=== PATIENT | female | born 1970 | race Caucasian/White ===

== ENCOUNTER 2017-04-11 14:55 | Outpatient (CLI) | payer BC | END 2017-04-11 14:56 | disposition home or self-care (01) | LOC: BICMAMMO 14:55 | PROVIDERS: ATTEND Internal Medicine | DX: Z12.31 Encounter for screening mammogram for malignant neoplasm of breast (principal); Z80.3 Family history of malignant neoplasm of breast | CPT/HCPCS: 77063; 77067 ==

== ENCOUNTER 2018-05-05 13:55 | Outpatient (CLI) | payer BC | END 2018-05-05 13:56 | disposition home or self-care (01) | LOC: BICMAMMO 13:55 | PROVIDERS: ATTEND Internal Medicine | DX: Z12.31 Encounter for screening mammogram for malignant neoplasm of breast (principal); Z80.3 Family history of malignant neoplasm of breast | CPT/HCPCS: 77063; 77067 ==

== ENCOUNTER 2020-03-18 07:49 | Day surgery (SDC) | payer BC ==
[2020-03-13 10:40] LABS: Hemoglobin 13.4 g/dL (12.0-16.0); Mean Corpuscular HGB CONC 33.7 G/DL (32.0-36.0); Mean Corpuscular Hemoglobin 31.6 PG (27.0-33.0); Mean Corpuscular Volume 93.9 fl (80.0-100.0); Mean Platelet Volume 9.8 fl (7.4-10.4); Platelet Count 303 10x3/uL (130-400); RBC Distribution Width 12.4 % (11.5-14.5); Red Blood Cell (RBC) Count 4.24 10x6/uL (3.90-5.20); White Blood Cell (WBC) Count 8.5 10x3/uL (4.5-11.0)
[2020-03-13 22:38] LABS: SARS-CoV-2 MS2 Positive; SARS-CoV-2 N Gene Negative; SARS-CoV-2 S Gene Negative; SARS-CoV-2 by NAA Not Detected (NotDetected); SARS-CoV-2 orf1ab Negative
--- NOTE | 2020-03-14 12:04 | HP ---
ANTICIPATED DATE OF SURGERY: 03/18/2020. REASON FOR ADMISSION: Symptomatic fibroids, menorrhagia. SCHEDULED PROCEDURE: Total laparoscopic hysterectomy with ExCITE morcellation and bilateral salpingectomy. HISTORY OF PRESENT ILLNESS: Ms. Isela Flores is a 2, para 1, 1, with a long history of menorrhagia and fibroids, that become more painful. Volume is approximately 500 mL on ultrasound. She desires definitive surgical management. SANDBLAST OPERATOR HISTORY: No history of abnormal Paps. Ultrasound revealed uterine volume of approximately 700 mL, multiple fibroids. PAST MEDICAL HISTORY: Significant for diabetes, DVT in and after cholecystectomy, hyperlipidemia, hypertension, as well as hypothyroidism. PAST SURGICAL HISTORY: C-sections. ALLERGIES: MORPHINE. MEDICATIONS: 1. Losartan. 2. HCTZ. 3. Metformin. 4. Synthroid. 5. Atorvastatin. SOCIAL HISTORY: Positive tobacco use. Denies alcohol or IV drug abuse. FAMILY HISTORY: Noncontributory. REVIEW OF SYSTEMS: Noncontributory. PHYSICAL EXAMINATION: VITAL SIGNS: Height 5 feet 3 inches, weight 212, BMI 37. Blood pressure 136/88, pulse 85, respirations 18. HEENT: Within normal limits. LUNGS: Clear to auscultation bilaterally. HEART: Regular rate and rhythm. ABDOMEN: Soft, nontender. No rebound or guarding. PELVIC: Vulva . Cervix, parous. Uterus, anteverted, irregular, 10 to 12 weeks size. Adnexa, no masses. EXTREMITIES: No clubbing, cyanosis, or edema. LABORATORY DATA: Pap smear is noted, benign. Hematocrit 41.4%. Hemoglobin A1c 6.0. IMPRESSION: Symptomatic fibroids with other multiple medical conditions, history of DVT in and after surgery. PLAN: We will proceed with total laparoscopic hysterectomy, ExCITE morcellation, bilateral salpingectomy. The patient understands risks and benefits of procedure. We will administer appropriate antibiotic and DVT sequential compression device prophylactic intraoperatively, and in postoperative period, start the patient on prophylactic Lovenox. We will discuss with Dr. Field at [facility] regarding changing to Eliquis for 6 weeks postoperative period. Job ID: [id number]
[2020-03-17 15:19] VITALS: BMI 35.4
[2020-03-18] MEDS ORDERED: CeleCOXIB 100 MG CAP ONE (07:57)
[2020-03-18] MEDS ORDERED: Gabapentin 300 MG CAP ONE (07:57)
[2020-03-18] MEDS ORDERED: Scopolamine 1.5 mg/72 hour Patch ONE (08:14)
[2020-03-18] MEDS ORDERED: Midazolam HCl 2 mg/2 ml Vial ONE (08:14)
[2020-03-18] MEDS ORDERED: SUGAMMADEX SODIUM 200 MG/2 ML VIAL ONE (09:54)
[2020-03-18] MEDS ORDERED: Fentanyl 250 MCG/5 ML VIAL ONE (09:54)
[2020-03-18] MEDS ORDERED: Bupivacaine PF 0.5% 30 ML VIAL ONE (09:56)
[2020-03-18] MEDS ORDERED: Lidocaine 1% w/Epinephrine 1:100K 20 ML VIAL ONE (09:56)
[2020-03-18] MEDS ORDERED: Famotidine/PF 20 mg/2ml Vial ONE (10:09)
[2020-03-18] MEDS ORDERED: Lidocaine 1% PF 5 ML VIAL ONE (10:22)
[2020-03-18] MEDS ORDERED: Ondansetron PF 4 MG/2 ML Vial ONE (10:22)
[2020-03-18] MEDS ORDERED: Glycopyrrolate 0.2 MG/ML 5 ML SYRINGE ONE (10:22)
[2020-03-18] MEDS ORDERED: Rocuronium Bromide 10 MG/ML (10ML VIAL) ONE (10:22)
[2020-03-18] MEDS ORDERED: PROPOFOL 200 MG/20 ML VIAL ONE (10:22)
[2020-03-18] MEDS ORDERED: Dexamethasone 20 MG/5 ML VIAL ONE (10:22)
[2020-03-18] MEDS ORDERED: Promethazine HCl 25 MG/ML VIAL SLOW IVP PRN (11:25)
[2020-03-18] MEDS ORDERED: Promethazine HCl 25 MG/ML VIAL IM PRN ×2 (11:25→12:05)
[2020-03-18] MEDS ORDERED: Ondansetron HCl/PF 4 MG/2 ML Vial IVP PRN (11:25)
[2020-03-18] MEDS ORDERED: Meperidine HCl/PF 25 MG/ML VIAL SLOW IVP PRN ×2 (11:25→15:40)
[2020-03-18] MEDS ORDERED: Morphine 2 MG/ML VIAL SLOW IVP PRN (12:05)
[2020-03-18] MEDS ORDERED: Simethicone Chewable 80 MG TAB PO PRN (12:05)
[2020-03-18] MEDS ORDERED: HYDROcodone/Acetaminophen 5/325 mg Tablet PO PRN ×2 (12:05)
[2020-03-18] MEDS ORDERED: traMADol HCl 50 MG TAB PO PRN (12:05)
[2020-03-18] MEDS ORDERED: diphenhydrAMINE 25 MG CAP PO PRN (12:05)
[2020-03-18] MEDS ORDERED: Zolpidem Tartrate 5 MG TAB PO PRN (12:05)
[2020-03-18] MEDS ORDERED: Ondansetron PF 4 MG/2 ML Vial IVP PRN (12:05)
[2020-03-18] MEDS ORDERED: Bisacodyl 10 MG SUPP PR PRN (12:05)
[2020-03-18] MEDS ORDERED: Morphine 4 MG/ML VIAL SLOW IVP PRN (12:05)
[2020-03-18] MEDS ORDERED: Fentanyl 100 MCG/2 ML VIAL ONE (13:01)
--- NOTE | 2020-03-18 13:47 | OP ---
DATE OF PROCEDURE: 03/18/2020 PREOPERATIVE DIAGNOSES: Fibroids, menorrhagia, history of previous section, history of deep venous thrombosis postoperatively. POSTOPERATIVE DIAGNOSES: Fibroids, menorrhagia, history of previous section, history of deep venous thrombosis postoperatively. PROCEDURES PERFORMED: Total laparoscopic hysterectomy with da Yoly ExCITE extracorporeal morcellation and bilateral salpingectomy. FLEECE TIER: Kiarra Leavitt PA-C. ANESTHESIA: General endotracheal. ESTIMATED BLOOD LOSS: Less than 100 mL. COMPLICATIONS: None. DRAINS: Newell to gravity. OPERATIVE FINDINGS: 1. Approximately 10 to 12-week size, 500 to 600 g uterus with multiple leiomyoma uteri. 2. Normal-appearing tubes and ovaries bilaterally. 3. Hemostasis, clear urine. COUNTS: Correct at the end of the procedure. DISPOSITION: Recovery room in good condition. DVT PROPHYLAXIS: SCDs intraoperatively and initiating Lovenox 40 subcu postoperatively. DESCRIPTION OF PROCEDURE: After obtaining proper consent, the patient was taken to the operating room, where general endotracheal anesthesia achieved without difficulty. The patient was prepped and draped, dorsal lithotomy in Kuldeep stirrups. Sliding speculum placed in the vagina. Cervix was identified, grasped with single-toothed tenaculum. PEMA manipulator with an 8 cm obturator and a 3.5 cm vaginal bridge worker apprentice was placed. Newell catheter was placed. Speculum and tenaculum removed. Hay Stacker changed his attention to abdominal portion of procedure. A 5 mL of Marcaine was injected superior to the umbilicus approximately 3 cm. A 2.5 cm skin incision was made. Dissection was carried down to the fascia in the midline. The Veress needle was placed in abdominal cavity. Insufflation was carried out with carbon dioxide for a maximum pressure of 15 and volume of approximately 3.5 L. A 12 mm non-cutting trocar was placed. Right and left lateral da Yoly ports were placed lateral to the epigastric vessels and assistant women's soccer coach port in the left upper quadrant. 12 mm trocar was removed and the fascial incision was extended to 5 cm. Small Manuel O placed inside and GelPOINT placed on as well. Da Yoly robot was docked. Monopolar scissors in the right hand, bipolar fenestrated forceps in the left. Findings as noted in the operative findings were noted. The left fallopian tube was removed in the usual manner, and then the utero-ovarian broad and round ligament were coagulated and transected. This was taken down to the level of the internal cervical os. The vesicouterine peritoneum was incised sharply, dissected off the lower uterine segment, cervix, and upper vagina. Skeletonization of the uterine vessels carried out on the left and these were coagulated and transected. Attention was turned to the right where identical procedure was carried out, removing the tube, coagulating and transecting the utero-ovarian broad and round down to the level of internal cervical os, finishing up the vesicouterine peritoneal incision and dissection, skeletonizing the vessels on the right and coagulating and transecting them. Once this was accomplished, the vagina was entered anteriorly at 12 o'clock after backfilling several times during the case to assure the location of the bladder. Incision through the upper vagina was carried from 12 to 3 and from 12 to 9, and then from 9 to 6 and 3 to 6, amputating the specimen which was pulled off the PEMA and placed in the upper abdomen. Suction irrigation was carried out. Good hemostasis was noted and the vagina was closed using a running continuous 2-0 PDS suture lock from right to left and back to right. Suction irrigation was carried out. Any areas of small bleeding in the area of the bladder dissection were rendered hemostatic using the bipolar fenestrated forceps, taking to avoid trauma to the bladder itself. Tisseel was placed across all surgical morgan for hemostasis and suction irrigation was carried out and good hemostasis was noted. The specimen retrieval sac was pulled into the pelvis. Stay sutures removed and the uterus placed inside. She was pulled out through the GelPOINT and elevated the abdomen. The da Yoly was undocked and the uterus was morcellated in the usual manner through the small Manuel O incision. Once the specimen was completely removed, the small Manuel O was removed. The fascia was reapproximated using 0 PDS suture at the level of the supraumbilical incision and skin reapproximated using 4-0 Monocryl and Dermabond x4. Sponge stick placed in the vagina revealed good hemostasis. Clear urine was noted. The patient was entered into routine postoperative care. Lovenox to be started 3 hours postoperatively because of history of DVT. Job ID: [id number]
[2020-03-18] MEDS ORDERED: Enoxaparin Sodium 40 MG/0.4 ML SYRINGE SC SCH (15:00)
[2020-03-18] MEDS ORDERED: Losartan/Hydrochlorothiazide 100 mg/25 mg Tablet PO SCH (16:30)
[2020-03-18] MEDS: Sodium Chloride 0.9% 1,000 ML IV SCH (18:16)
[2020-03-19 05:53] LABS: Hemoglobin 12.2 g/dL (12.0-16.0); Mean Corpuscular HGB CONC 33.7 g/dL (32.0-36.0); Mean Corpuscular Hemoglobin 31.8 pg (27.0-31.0); Mean Corpuscular Volume 94.2 fL (78.0-98.0); Mean Platelet Volume 7.4 fL (7.4-10.4); Platelet Count 295 thou/uL (130-400); RBC Distribution Width 11.7 % (11.5-14.5); Red Blood Cell (RBC) Count 3.85 mill/uL (4.20-5.40); White Blood Cell (WBC) Count 15.8 thou/uL (4.8-10.8)
[2020-03-19] MEDS ORDERED: Levothyroxine 175 MCG TAB PO SCH (06:00)
[2020-03-19] MEDS ORDERED: Ibuprofen 800 MG TAB PO SCH (06:00)
[2020-03-19 08:19] VITALS: BP 136/65; TEMP 98.4
[2020-03-19] MEDS: Sodium Chloride 0.9% 1,000 ML IV SCH (08:28)
--- NOTE | 2020-03-19 08:45 | DIS ---
DATE OF ADMISSION: 03/18/2020 DATE OF DISCHARGE: 03/19/2020 SUMMARY OF HOSPITAL COURSE: The patient was admitted and underwent second case TLH, bilateral salpingectomy for menorrhagia, fibroids, and an approximately 500 to 600 g uterus with ExCITE procedure on 03/18, it was unremarkable with 100 mL EBL. The patient has done well in the postoperative period and is without complaints this morning, and ready for discharge home. LABORATORY DATA: Hematocrit went from 39% to 36%. Urine output has been good. PHYSICAL EXAMINATION: VITAL SIGNS: Temperature 98.3, pulse 88, respirations 16, blood pressure 141/77. HEENT: Within normal limits. LUNGS: Clear to auscultation bilaterally. ABDOMEN: Soft, nontender, nondistended. Incision is intact and dry. Perineum dry. EXTREMITIES: No clubbing, cyanosis, or edema. IMPRESSION: 1. Status post hysterectomy. 2. History of deep venous thrombosis and postoperative period. PLAN: Discharge home. Narcotics as prescribed. Begin Eliquis 25 mg p.o. b.i.d. at home. We will administer today's dose of 40 mg of Lovenox subcu prior to discharge. Job ID: [id number]
[2020-03-19] MEDS ORDERED: metFORMIN 500 MG TAB PO SCH (09:00)
[2020-03-19] MEDS ORDERED: Enoxaparin Sodium 40 MG/0.4 ML SYRINGE SC SCH (09:00)
[2020-03-19] MEDS ORDERED: Atorvastatin Calcium 40 MG TAB PO SCH (09:00)
[2020-03-19] MEDS ORDERED: Losartan/Hydrochlorothiazide 100 mg/25 mg Tablet PO SCH ×2 (09:00)
== END 2020-03-19 09:25 | disposition home or self-care (01) ==
LOC: SDC 07:49 → 3SW 15:09 → SDC 03-19 09:25
PROVIDERS: ATTEND Obstetrics & Gynecology
PROC: 0UT74ZZ Resection of Bilateral Fallopian Tubes, Percutaneous Endoscopic Approach (ICD-10-PCS; principal; 2020-03-18)
PROC: 0UT94ZZ Resection of Uterus, Percutaneous Endoscopic Approach (ICD-10-PCS; principal; 2020-03-18)
DX: D25.2 Subserosal leiomyoma of uterus (principal); N72 Inflammatory disease of cervix uteri; N87.9 Dysplasia of cervix uteri, unspecified; I10 Essential (primary) hypertension; E11.9 Type 2 diabetes mellitus without complications; E78.5 Hyperlipidemia, unspecified; E03.9 Hypothyroidism, unspecified; F17.290 Nicotine dependence, other tobacco product, uncomplicated; Z79.84 Long term (current) use of oral hypoglycemic drugs; Z79.899 Other long term (current) drug therapy; Z88.5 Allergy status to narcotic agent
CPT/HCPCS: 36415; 85027; 86850; 86900; 86901; 87635; 88307; J0690; J1100; J1650; J2175; J2250; J2405; J2704; J3010; S0020; S0028; U0003